=== PATIENT | male | born 1995 | race Caucasian/White ===

== ENCOUNTER 2017-03-25 23:02 | Emergency (ER) | payer BC ==
[2017-03-25 23:10] VITALS: BMI 31.4
[2017-03-25 23:20] VITALS: TEMP 98.2
[2017-03-26 00:06] LABS: ADD MANUAL DIFF? NO
[2017-03-26 00:16] LABS: BASO # 0.04 K/mm3 (0.0-2.0); BASO % 0.6 % (0.0-3.0); EOS # 0.2 (0.0-0.7); EOS % 3.1 % (1.5-5.0); GRAN # 3.58 (1.4-6.5); LYMPH # 2.5 (1.2-3.4); LYMPH % 36.5 % (22.0-35.0); MEAN CELL VOLUME 84.7 fL (80.0-105.0); MEAN CORPUSCULAR HEMOGLOBIN 29.8 pg (25.0-35.0); MEAN CORPUSCULAR HGB CONC 35.1 g/dl (31.0-37.0); MONO # 0.5 (0.1-0.6); MONO % 7.8 % (1.0-6.0); PLATELET COUNT 236 10^3/uL (120.0-450.0); RED CELL DISTRIBUTION WIDTH 13.8 % (11.5-14.5); WHITE BLOOD COUNT 6.9 10^3/ul (4.5-11.0)
[2017-03-26 00:22] LABS: ALB/GLOB RATIO 1.3 (1.1-1.8); ALKALINE PHOSPHATASE 40 U/L (38-133); ALT/SGPT 38 U/L (7-56); AST/SGOT 29 U/L (15-59); BILIRUBIN,TOTAL 0.5 mg/dL (0.2-1.3); BLOOD UREA NITROGEN 12 mg/dL (7-21); CALCIUM 9.5 mg/dL (8.4-10.5); CARBON DIOXIDE 28 mmol/L (21-33); CHLORIDE 99 mmol/L (98-107); GFR AFRICAN-AMERICAN > 60; GLUCOSE,RANDOM 92 mg/dL (70-110); POTASSIUM 3.4 mmol/L (3.6-5.0); SODIUM 137 mmol/L (132-148); TOTAL PROTEIN 8.4 g/dL (5.8-8.3)
[2017-03-26 00:36] LABS: TROPONIN I < 0.01 ng/mL
--- NOTE | 2017-03-26 00:37 | ED PDOC ---
Arrival/HPI - General Chief Complaint: Anxiety Time Seen by Provider: 03/25/17 23:57 Historian: Patient - History of Present Illness Narrative History of Present Illness (Text): 03/26/17 00:38 A 21 year old male, whose past medical history includes hyperthyroidism, presents to the emergency department complaining of shortness of breath, headaches and near syncope. Family reports patient twitches and gets these "shocks". Patient notes he has had headaches for the past 3 years. Patient reports taking Prozac and Klonopin for anxiety, but stopped taking medications yesterday. Patient notes has been depressed for the past 2-3 weeks. Reports nausea, vomiting and diaphoresis but denies any other complaints at this time. Symptom Onset: Sudden Symptom Course: Improving, Resolved Activities at Onset: Rest Context: Home Past Medical History - Provider Review Nursing Documentation Reviewed: Yes - Cardiac Hx Cardiac Disorders: No - Pulmonary Hx Respiratory Disorders: No - Neurological Hx Neurological Disorder: No - HEENT Hx HEENT Disorder: No - Renal Hx Renal Disorder: No - Endocrine/Metabolic Hx Hyperthyroidism: Yes - Hematological/Oncological Hx Blood Disorders: No - Integumentary Hx Dermatological Disorder: No - Musculoskeletal/Rheumatological Hx Musculoskeletal Disorders: No - Gastrointestinal Hx Gastrointestinal Disorders: No - Genitourinary/Gynecological Hx Genitourinary Disorders: No - Psychiatric Hx Psychophysiologic Disorder: Yes Hx Bipolar Disorder: Yes Hx Depression: Yes Hx Substance Use: No - Anesthesia Hx Anesthesia: No Family/Social History - Physician Review Nursing Documentation Reviewed: Yes Family/Social History: No Known Family HX Smoking Status: Never Smoked Hx Alcohol Use: No Hx Substance Use: No Allergies/Home Meds Allergies/Adverse Reactions: Allergies diphenhydramine [From Benadryl] Allergy (Verified 03/25/17 23:10) DIZZINESS Home Medications: Home Meds Medication Instructions Recorded Confirmed FLUoxetine [Prozac] 10 mg PO DAILY 03/25/17 03/25/17 clonazePAM [Klonopin] 0.5 mg PO HS 03/25/17 03/25/17 Review of Systems - Physician Review All systems were reviewed & negative as marked: Yes - Review of Systems Respiratory: SOB Gastrointestinal: Nausea, Vomiting Neurological: Headache Endocrine: Diaphoresis Psychiatric: Depression Physical Exam Vital Signs Reviewed: Yes Vital Signs Temp Pulse Resp BP Pulse Ox 03/26/17 01:00 65 20 135/84 98 03/26/17 00:00 67 20 157/87 H 100 03/25/17 23:19 98.2 F 77 16 168/86 H 99 Temperature: Afebrile Blood Pressure: Hypertensive Pulse: Regular Respiratory Rate: Normal Appearance: Positive for: Well-Appearing, Non-Toxic, Comfortable Pain Distress: None Mental Status: Positive for: Alert and Oriented X 3 - Systems Exam Head: Present: Atraumatic, Normocephalic Pupils: Present: PERRL Extroacular Muscles: Present: EOMI Conjunctiva: Present: Normal Mouth: Present: Moist Mucous Membranes Neck: Present: Normal Range of Motion Respiratory/Chest: Present: Clear to Auscultation, Good Air Exchange. No: Respiratory Distress, Accessory Muscle Use Cardiovascular: Present: Regular Rate and Rhythm, Normal S1, S2. No: Murmurs Abdomen: Present: Normal Bowel Sounds. No: Tenderness, Distention, Peritoneal Signs Back: Present: Normal Inspection Upper Extremity: Present: Normal Inspection. No: Cyanosis, Edema Lower Extremity: Present: Normal Inspection. No: Edema Neurological: Present: GCS=15, CN II-XII Intact, Speech Normal Skin: Present: Warm, Dry, Normal Color. No: Rashes Psychiatric: Present: Alert, Oriented x 3, Normal Insight, Normal Concentration Medical Decision Making ED Course and Treatment: 03/26/17 00:30 EKG: Ordered, reviewed, and independently interpreted the EKG. Rate : 72 BPM Rhythm : NSR Interpretation : Normal axis, Normal intervals, No acute ischemia Comparison : No previous EKG for comparison. chest xray: No acute findings, interpreted by me. - Lab Interpretations Lab Results: 03/25/17 23:15 03/25/17 23:15 Lab Results 03/26/17 00:35: Urine Opiates Screen Negative, Urine Methadone Screen Negative, Ur Barbiturates Screen Negative, Ur Phencyclidine Scrn Negative, Ur Amphetamines Screen Negative, U Benzodiazepines Scrn Negative, U Oth Cocaine Metabols Negative, U Cannabinoids Screen Positive H 03/26/17 00:35: Urine Color Light yellow, Urine Appearance Clear, Urine pH 7.0, Ur Specific [place] 1.010, Urine Protein Negative, Urine Glucose (UA) Negative, Urine Ketones Negative, Urine Blood Negative, Urine Nitrate Negative, Urine Bilirubin Negative, Urine Urobilinogen 0.2, Ur Leukocyte Esterase Negative 03/25/17 23:15: TSH 3rd Generation 9.80 H 03/25/17 23:15: Alcohol, Quantitative < 10 03/25/17 23:15: Sodium 137, Potassium 3.4 L, Chloride 99, Carbon Dioxide 28, Anion Gap 13, BUN 12, Creatinine 0.9, Est GFR ( Amer) > 60, Est GFR (Non- Af Amer) > 60, Random Glucose 92, Calcium 9.5, Total Bilirubin 0.5, AST 29, ALT 38, Alkaline Phosphatase 40, Troponin I < 0.01, Total Protein 8.4 H, Albumin 4.7 , Globulin 3.7, Albumin/Globulin Ratio 1.3 03/25/17 23:15: WBC 6.9, RBC 5.31, Hgb 15.8, Hct 45.0, MCV 84.7, MCH 29.8, MCHC 35.1, RDW 13.8, Plt Count 236, MPV 10.0, Gran % 52.0, Lymph % (Auto) 36.5 H, [place] % (Auto) 7.8 H, Eos % (Auto) 3.1, Baso % (Auto) 0.6, Gran # 3.58, Lymph # 2.5, [place] # 0.5, Eos # 0.2, Baso # 0.04 I have reviewed the lab results: Yes - RAD Interpretation Radiology Orders: 03/25/17 23:58 CHEST PORTABLE [RAD] Stat - EKG Interpretation Interpreted by ED Physician: Yes Type: 12 lead EKG - Scribe Statement The provider has reviewed the documentation as recorded by the Leann Moreland Provider Scribe Attestation: All medical record entries made by the Leann were at my direction and personally dictated by me. I have reviewed the chart and agree that the record accurately reflects my personal performance of the history, physical exam, medical decision making, and the department course for this patient. I have also personally directed, reviewed, and agree with the discharge instructions and disposition. Disposition/Present on Arrival - Present on Arrival History of DVT/PE: No History of Uncontrolled Diabetes: No Urinary Catheter: No History of Decub. Ulcer: No History Surgical Site Infection Following: None - Disposition
[2017-03-26 00:45] LABS: URINE BILIRUBIN NEGATIVE (NEGATIVE); URINE BLOOD NEGATIVE (NEGATIVE); URINE GLUCOSE (UA) NEGATIVE (NEGATIVE); URINE KETONE NEGATIVE (NEGATIVE); URINE LEUKOCYTE ESTERASE NEGATIVE Leu/uL (NEGATIVE); URINE PROTEIN NEGATIVE mg/dL (<30 mg/dL); URINE UROBILINOGEN 0.2 E.U./dL (<1 E.U./dL)
[2017-03-26 00:46] LABS: URINE APPEARANCE CLEAR (CLEAR); URINE COLOR LIGHT YELLOW (YELLOW)
--- NOTE | 2017-03-26 07:11 | ED PDOC ---
Physical Exam Vital Signs Temp Pulse Resp BP Pulse Ox 03/26/17 06:00 70 20 137/85 99 03/26/17 04:00 67 16 166/93 H 97 03/26/17 03:00 64 20 145/77 98 03/26/17 02:00 65 16 127/75 98 03/26/17 01:00 65 20 135/84 98 03/26/17 00:00 67 20 157/87 H 100 03/25/17 23:19 98.2 F 77 16 168/86 H 99 Medical Decision Making ED Course and Treatment: 03/26/17 07:00 Patient signed out to me by Dr. Vargas. Awaiting PES. Patient is currently asymptomatic, no SI/HI. HPI notes SOB, pt PERC negative 03/26/17 08:42 seen by PES, discharged home pt denies any complaints at this time, states he feels comfortable being dc'd home denies SI/HI Pt states he understands to return to the ER right away for new or worsening symptoms or for inability to f/u with PMD or specialist as instructed. Patient states that he fully agrees with and understands discharge instructions. States that he agrees with the plan and disposition. Verbalized and repeated discharge instructions and plan. I have given the patient opportunity to ask any additional questions. - Lab Interpretations Lab Results: 03/25/17 23:15 03/25/17 23:15 Lab Results 03/26/17 00:35: Urine Opiates Screen Negative, Urine Methadone Screen Negative, Ur Barbiturates Screen Negative, Ur Phencyclidine Scrn Negative, Ur Amphetamines Screen Negative, U Benzodiazepines Scrn Negative, U Oth Cocaine Metabols Negative, U Cannabinoids Screen Positive H 03/26/17 00:35: Urine Color Light yellow, Urine Appearance Clear, Urine pH 7.0, Ur Specific [place] 1.010, Urine Protein Negative, Urine Glucose (UA) Negative, Urine Ketones Negative, Urine Blood Negative, Urine Nitrate Negative, Urine Bilirubin Negative, Urine Urobilinogen 0.2, Ur Leukocyte Esterase Negative 03/25/17 23:15: TSH 3rd Generation 9.80 H 03/25/17 23:15: Alcohol, Quantitative < 10 03/25/17 23:15: Sodium 137, Potassium 3.4 L, Chloride 99, Carbon Dioxide 28, Anion Gap 13, BUN 12, Creatinine 0.9, Est GFR ( Amer) > 60, Est GFR (Non- Af Amer) > 60, Random Glucose 92, Calcium 9.5, Total Bilirubin 0.5, AST 29, ALT 38, Alkaline Phosphatase 40, Troponin I < 0.01, Total Protein 8.4 H, Albumin 4.7 , Globulin 3.7, Albumin/Globulin Ratio 1.3 03/25/17 23:15: WBC 6.9, RBC 5.31, Hgb 15.8, Hct 45.0, MCV 84.7, MCH 29.8, MCHC 35.1, RDW 13.8, Plt Count 236, MPV 10.0, Gran % 52.0, Lymph % (Auto) 36.5 H, [place] % (Auto) 7.8 H, Eos % (Auto) 3.1, Baso % (Auto) 0.6, Gran # 3.58, Lymph # 2.5, [place] # 0.5, Eos # 0.2, Baso # 0.04 - RAD Interpretation Radiology Orders: 03/25/17 23:58 CHEST PORTABLE [RAD] Stat - Scribe Statement The provider has reviewed the documentation as recorded by the Scribe Mary Jenkins Provider Scribe Attestation: All medical record entries made by the Scribe were at my direction and personally dictated by me. I have reviewed the chart and agree that the record accurately reflects my personal performance of the history, physical exam, medical decision making, and the department course for this patient. I have also personally directed, reviewed, and agree with the discharge instructions and disposition. Disposition/Present on Arrival - Present on Arrival Any Indicators Present on Arrival: No History of DVT/PE: No History of Uncontrolled Diabetes: No Urinary Catheter: No History of Decub. Ulcer: No History Surgical Site Infection Following: None - Disposition Have Diagnosis and Disposition been Completed?: Yes Diagnosis: Lightheadedness, Shortness of breath Disposition: HOME/ ROUTINE Disposition Time: 08:44 Patient Plan: Discharge Patient Problems: Current Active Problems Problem Status Onset Lightheadedness Acute Shortness of breath Acute Condition: GOOD Additional Instructions: Please follow up with a primary doctor and also with the psychiatrist. Return to the ER for any worsening symptoms or for any other concerns. Prescriptions: LORazepam [Ativan] 1 mg PO Q8H PRN #4 tab PRN Reason: Anxiety Referrals: [facility] at [facility] [place]] - Follow up with primary Yamini Reyes MD [Medical Doctor] - Follow up with primary Bill Coelho MD [Staff Provider] - Follow up with primary Forms: WORK NOTE
--- NOTE | 2017-03-26 08:47 | RAD ---
HISTORY: sob COMPARISON: None available. TECHNIQUE: Chest, one view. FINDINGS: Examination limited by habitus. LUNGS: No focal consolidation. Please note that chest x-ray has limited sensitivity for the detection of pulmonary masses. PLEURA: No significant pleural effusion identified. No definite pneumothorax . CARDIOVASCULAR: The cardiomediastinal silhouette appears within normal limits of size. OSSEOUS STRUCTURES: No acute osseous abnormality identified. VISUALIZED UPPER ABDOMEN: Unremarkable. OTHER FINDINGS: None. IMPRESSION: No focal consolidation, significant pleural effusion, or definite pneumothorax identified.
[2017-03-26 08:53] VITALS: BP 128/80; PULSE 72; RESP 18; O2SAT 98
--- NOTE | 2017-03-26 15:45 | CARD ---
APPROVED REPORT EKG Measurement Heart [id number] <Conclusion> Normal sinus rhythm Normal ECG
== END 2017-03-26 08:53 | disposition home or self-care (01) ==
LOC: ED 23:02
DX: R42 Dizziness and giddiness (principal); R06.02 Shortness of breath; F41.9 Anxiety disorder, unspecified; F32.9 Major depressive disorder, single episode, unspecified
CPT/HCPCS: 71010; 80053; 81003; 84443; 84484; 85025; 90791; 93005; 99284; G0480

== ENCOUNTER 2018-02-02 00:52 | Emergency (ER) | payer OTHER, BC ==
[2018-02-02 01:03] VITALS: BMI 27.3
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
[2018-02-02 01:14] VITALS: RESP 18; O2SAT 100
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
[2018-02-02] MEDS ORDERED: TDAP Vaccine 0.5 mL Syr IM ONE (03:12)
[2018-02-02 04:21] VITALS: BP 129/89; PULSE 70; TEMP 98.4
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
== END 2018-02-02 03:30 | disposition home or self-care (01) ==
LOC: ED 00:52
DX: S46.911A Strain of unspecified muscle, fascia and tendon at shoulder and upper arm level, right arm, initial encounter (principal); S01.81XA Laceration without foreign body of other part of head, initial encounter; V49.9XXA Car occupant (driver) (passenger) injured in unspecified traffic accident, initial encounter; Z23 Encounter for immunization

== ENCOUNTER 2018-02-02 16:21 | Emergency (ER) | payer OTHER, BC ==
[2018-02-02 16:21] VITALS: BMI 27.3
== END 2018-02-02 18:59 | disposition left against medical advice (07) ==
LOC: ED 16:21
DX: Z02.89 Encounter for other administrative examinations (principal); R52 Pain, unspecified